=== PATIENT | female | born 1980 | race Caucasian/White ===

== ENCOUNTER 2017-10-09 17:55 | Emergency (ER) | payer OTHER ==
[2017-10-09] MEDS ORDERED: SODIUM CHLORIDE 0.9% 1,000 ML IV ONE (18:13)
[2017-10-09] MEDS ORDERED: ONDANSETRON 4 MG/2 ML VIAL IVP STA (18:13)
--- NOTE | 2017-10-09 18:15 | ED Physician Documentation ---
PD HPI NVD - Stated complaint Stated Complaint: VOMITING - Chief complaint Chief Complaint: Abd Pain - History obtained from History obtained from: Patient, Family () - History of Present Illness Timing - onset: Other (36-year-old woman has been sick with fatigue and URI for the last couple of weeks, saw her physician on Tuesday and was prescribed Augmentin, codeine for presumed sinus infection with cough. She took the codeine and that night felt [place] and nauseous, although her actually says she vomited that night she says she did not vomit until yesterday. She has had vomiting and stomach cramping without diarrhea. She doubts the possibility of , she just started her menses and her has had a vasectomy.) Review of Systems Constitutional: reports: Chills, Fatigue. denies: Fever Nose: reports: Rhinorrhea / runny nose, Congestion, Sinus pressure / pain Throat: denies: Sore throat Respiratory: reports: Cough. denies: Dyspnea GI: reports: Abdominal Pain, Nausea, Vomiting. 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 - Present Medications Home Medications: Ambulatory Orders Medication Instructions Recorded Confirmed Amoxicillin/Potassium Clav [Amox 1 each PO BID 10/09/17 10/09/17 Tr-K Clv 875-125 mg Tab] Benzonatate 100 mg PO TID PRN 10/09/17 10/09/17 Ondansetron HCl [Zofran] 4 mg PO Q6H PRN #10 tablet 10/09/17 guaiFENesin/CODEINE [Robitussin AC] 5 ml PO Q6H PRN 10/09/17 10/09/17 - Allergies Allergies/Adverse Reactions: Allergies Allergy/AdvReac Type Severity Reaction Status Date / Time Sulfa (Sulfonamide Allergy Mild Rash Verified 10/09/17 18:03 Antibiotics) - Social History Does the pt smoke?: No Smoking Status: Never smoker Does the pt drink ETOH?: Yes Does the pt have substance abuse?: No - Immunizations Immunizations are current?: Yes PD ED PE NORMAL - Vitals Vital signs reviewed: Yes - General General: Alert and oriented X 3, No acute distress - HEENT HEENT: PERRL, EOMI, Pharynx benign - Neck Neck: Supple, no meningeal sign, No bony TTP - Cardiac Cardiac: RRR, No murmur - Respiratory Respiratory: No respiratory distress, Clear bilaterally - Abdomen Abdomen: Other (Soft with normal bowel tones, mild lower abdominal tenderness without surgical signs.) - Back Back: No CVA TTP, No spinal TTP - Derm Derm: Normal color, Warm and dry - Extremities Extremities: No edema, No calf tenderness / cord - Neuro Neuro: Alert and oriented X 3, Normal speech Results - Vitals Vitals: Vital Signs - 24 hr 10/09/17 10/09/17 18:00 19:00 Temperature 36.8 C 36.8 C Heart Rate 76 71 Respiratory 16 16 Rate Blood Pressure 132/70 H 118/73 O2 Saturation 100 96 Oxygen O2 Source Room air - Labs Labs: Laboratory Tests 10/09/17 10/09/17 18:20 18:20 WBC 6.4 RBC 4.91 Hgb 14.1 Hct 42.0 MCV 85.6 MCH 28.8 MCHC 33.7 RDW 13.6 Plt Count 291 MPV 8.4 Neut # 3.9 Lymph # 2.0 [place] # 0.5 Eos # 0.0 Baso # 0.0 Absolute Nucleated RBC 0.01 Nucleated RBC % 0.1 Sodium 136 Potassium 3.7 Chloride 105 Carbon Dioxide 22 Anion Gap 9.0 BUN 9 Creatinine 0.6 Estimated GFR (MDRD) 112 Glucose 120 H Calcium 9.8 Total Bilirubin 0.5 AST 21 ALT 18 Alkaline Phosphatase 95 Total Protein 8.3 H Albumin 4.2 Globulin 4.1 Albumin/Globulin Ratio 1.0 Lipase 23 Serum HCG, Qual NEGATIVE PD MEDICAL DECISION MAKING - ED course ED course: 36-year-old woman with vomiting, potentially related to taking codeine for cough. Symptoms resolved after the administration of Zofran IV fluids and she was nontender on reevaluation. Departure - Departure Disposition: 01 Home, Self Care Clinical Impression: Vomiting Qualifiers: Vomiting type: unspecified Vomiting Intractability: non-intractable Nausea presence: with nausea Qualified Code(s): R11.2 - Nausea with vomiting, unspecified Condition: Good Record reviewed to determine appropriate education?: Yes Instructions: ED Nausea Vomiting Prescriptions: Ondansetron HCl [Zofran] 4 mg PO Q6H PRN #10 tablet PRN Reason: Nausea / Vomiting Comments: I would refrain from taking any more codeine cough syrup but she can continue the antibiotic and benzonatate for the cough. Return if worse or if not better in 12-24 hours. Return if you develop a fever. Follow-up with your doctor in 3-5 days for recheck. Your blood pressure was elevated today on check into the emergency department. This does not mean that you have hypertension, it is a common phenomenon to come to the emergency department and have elevated blood pressure. I recommend that you see your primary care physician within the week to have it rechecked when you are feeling better. Discharge Date/Time: 10/09/17 19:11
[2017-10-09 18:30] LABS: BASOPHILS % (AUTO) 0.3 %; HGB - HEMOGLOBIN 14.1 g/dL (12.0-16.0); LYMPHOCYTES % (AUTO) 30.7 %; MEAN CORPUSCULAR HEMOGLOBIN 28.8 pg (27.0-31.0); MEAN CORPUSCULAR HGB CONC 33.7 g/dL (32.0-36.0); MEAN CORPUSCULAR VOLUME 85.6 fL (81.0-99.0); MEAN PLATELET VOLUME 8.4 fL (7.9-10.8); MONOCYTES # (AUTO) 0.5 10^3/uL (0.0-1.0); MONOCYTES % (AUTO) 7.1 %; NEUTROPHILS # (AUTO) 3.9 10^3/uL (1.5-6.6); NEUTROPHILS % (AUTO) 61.9 %; NUCLEATED RED BLOOD CELLS AUTO 0.1 /100WBC; RED BLOOD COUNT 4.91 10^6/uL (4.20-5.40); RED CELL DISTRIBUTION WIDTH 13.6 % (12.0-15.0); UNCORRECTED WHITE BLOOD COUNT 6.4 x10^3/uL; WHITE BLOOD COUNT 6.4 x10^3/uL (4.8-10.8)
[2017-10-09 18:44] LABS: BILIRUBIN,TOTAL 0.5 mg/dL (0.2-1.0); BUN - BLOOD UREA NITROGEN 9 mg/dL (6-20); CALCIUM 9.8 mg/dL (8.5-10.3); CARBON DIOXIDE - CO2 22 mmol/L (21-32); CHLORIDE 105 mmol/L (101-111); CREATININE 0.6 mg/dL (0.4-1.0); GFR - MDRD 112 (>89); GLUCOSE 120 mg/dL (70-100); LIPASE 23 U/L (22-51); POTASSIUM 3.7 mmol/L (3.5-5.0); SODIUM 136 mmol/L (135-145); TOTAL PROTEIN 8.3 g/dL (6.7-8.2)
[2017-10-09] MEDS ORDERED: ONDANSETRON ODT 4 MG Prepack 2 TL STA (18:58)
[2017-10-09 19:01] VITALS: BP 118/73
== END 2017-10-09 19:11 | disposition home or self-care (01) ==
LOC: ED 17:55
DX: R11.2 Nausea with vomiting, unspecified (principal)
CPT/HCPCS: 36415; 80053; 83690; 84703; 85025; 96360; 96361; 99283; 99284

== ENCOUNTER 2018-03-16 21:20 | Emergency (ER) | payer OTHER ==
[2018-03-16 21:56] LABS: GLUCOSE, URINE (UA) NEGATIVE (NEGATIVE); KETONES,URINE (UA) TRACE mg/dL (NEGATIVE); LEUKOCYTE ESTERASE, URINE NEGATIVE (NEGATIVE); NITRITE,URINE NEGATIVE (NEGATIVE); OCCULT BLOOD,URINE LARGE (NEGATIVE); PH,URINE 5.5 PH (5.0-7.5); PROTEIN,URINE 100 mg/dL (NEGATIVE); UROBILINOGEN,URINE 1 (NORMAL) E.U./dL (NORMAL)
[2018-03-16 22:00] LABS: BILIRUBIN,URINE NEGATIVE (NEGATIVE); CLARITY,URINE BLOODY (CLEAR); HCG UR QUAL NEGATIVE; ICTOTEST,URINE NEGATIVE
[2018-03-16 22:01] LABS: BACTERIA,URINE Few /HPF (None Seen); MUCUS,URINE Few Strands; RBC,URINE TNTC /HPF (0-5); SQUAMOUS EPITHELIAL CELL,UR FEW Squamous (<= Few)
[2018-03-16 22:02] LABS: HGB - HEMOGLOBIN 13.3 g/dL (12.0-16.0); LYMPHOCYTES % (AUTO) 28.5 %; MEAN CORPUSCULAR HEMOGLOBIN 27.7 pg (27.0-31.0); MEAN CORPUSCULAR HGB CONC 33.5 g/dL (32.0-36.0); MEAN CORPUSCULAR VOLUME 82.6 fL (81.0-99.0); MEAN PLATELET VOLUME 8.9 fL (7.9-10.8); MONOCYTES # (AUTO) 0.5 10^3/uL (0.0-1.0); MONOCYTES % (AUTO) 7.8 %; NEUTROPHILS # (AUTO) 4.5 10^3/uL (1.5-6.6); NEUTROPHILS % (AUTO) 63.7 %; PLT - PLATELET COUNT 281 10^3/uL (130-450); RED BLOOD COUNT 4.79 10^6/uL (4.20-5.40); RED CELL DISTRIBUTION WIDTH 15.5 % (12.0-15.0); WHITE BLOOD COUNT 7.1 x10^3/uL (4.8-10.8)
[2018-03-16 22:09] LABS: ALBUMIN 4.1 g/dL (3.2-5.5); BILIRUBIN,TOTAL 0.5 mg/dL (0.2-1.0); CALCIUM 9.5 mg/dL (8.5-10.3); CREATININE 0.6 mg/dL (0.4-1.0); TOTAL PROTEIN 8.1 g/dL (6.7-8.2)
[2018-03-16] MEDS ORDERED: KETOROLAC 60 MG/2 ML VIAL IVP STA (22:25)
--- NOTE | 2018-03-17 00:27 | Ultrasound Preliminary Report ---
Exam: US PELVIC W/TRANSVAG+DOPPLER COMP IMPRESSION: Normal transabdominal pelvic ultrasound. [facility] SITE ID: [id number]
--- NOTE | 2018-03-17 00:35 | Ultrasound Report ---
EXAM: PELVIC ULTRASOUND EXAM DATE: 03/17/2018 12:08 AM. CLINICAL HISTORY: Left lower quad pain, history of cysts. COMPARISON: None. TECHNIQUE: Realtime transabdominal pelvic scan performed to identify the uterus and adnexa and as an overview of other pelvic structures, with static image documentation. Patient reportedly declined tr ansvaginal portion of the study. FINDINGS: Uterus: 10.6 x 3.7 x 5.0 cm, volume 101.9 cc. Anteverted position. Normal overall size and echotextur e. Masses: None. Endometrium: 2 mm. Normal. Cervix: Unremarkable. Right Ovary: 2.4 x 2.2 x 2.1 cm, volume 5.7 cc. Normal echotexture and blood flow. Left Ovary: 2.8 x 2.4 x 2.7 cm, volume 9.5 cc. Normal echotexture and blood flow. Free Fluid: None. Other: None. IMPRESSION: Normal transabdominal pelvic ultrasound. [facility] Referring Provider Line: [phone] SITE ID: [id number]
--- NOTE | 2018-03-17 00:52 | ED Physician Documentation ---
PD HPI ABD PAIN - Stated complaint Stated Complaint: ABD PX - Chief complaint Chief Complaint: Abd Pain - History obtained from History obtained from: Patient, Family - History of Present Illness Timing - onset: Today Timing - details: Abrupt onset, Now resolved Quality: Cramping, Aching, Sharp Location: LLQ Associated symptoms: Nausea. No: Fever, Vomiting Similar symptoms before: Work up / diagnostics, Treatment Recently seen: Not recently seen - Additional information Additional information: Patient is a 37 year old female with a history of fibromyalgia, recurrent pain and ovarian cysts who is presenting to the emergency department for left lower quadrant pain. Patient states that the symptoms started this evening and had her doubled over in pain. patient states that she thinks it might be her ovary. patient is currently on her menstrual cycle. Review of Systems Constitutional: denies: Fever, Chills GI: reports: Abdominal Pain, Nausea. denies: Vomiting, Constipation, Diarrhea, Hematemesis, Bloody / black stool : reports: Vaginal bleeding. 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 - Allergies Allergies/Adverse Reactions: Allergies Allergy/AdvReac Type Severity Reaction Status Date / Time Sulfa (Sulfonamide Allergy Mild Rash Verified 03/16/18 21:27 Antibiotics) codeine Allergy Emesis Verified 03/16/18 21:27 - Social History Does the pt smoke?: No Smoking Status: Never smoker Does the pt drink ETOH?: Yes Does the pt have substance abuse?: No Substance Use and Type: Marijuana - Immunizations Immunizations are current?: Yes PD ED PE NORMAL - Vitals Vital signs reviewed: Yes - General General: Alert and oriented X 3, No acute distress - HEENT HEENT: Atraumatic - Neck Neck: Supple, no meningeal sign - Cardiac Cardiac: RRR - Respiratory Respiratory: No respiratory distress - Derm Derm: Normal color, No rash - Extremities Extremities: No deformity - Neuro Neuro: Alert and oriented X 3, No motor deficit Eye Opening: Spontaneous Motor: Obeys Commands Verbal: Oriented GCS Score: 15 PD ED PE EXPANDED - Abdomen Abdomen: Tender to palpation, LLQ. No: Rebound, Guarding Results - Vitals Vitals: Vital Signs - 24 hr 03/16/18 03/17/18 21:22 00:59 Temperature 36.3 C L Heart Rate 85 50 L Respiratory 18 17 Rate Blood Pressure 97/74 126/67 O2 Saturation 99 100 Oxygen O2 Source Room air - Labs Labs: Laboratory Tests 03/16/18 03/16/18 03/16/18 21:35 21:35 21:45 WBC 7.1 RBC 4.79 Hgb 13.3 Hct 39.6 MCV 82.6 MCH 27.7 MCHC 33.5 RDW 15.5 H Plt Count 281 MPV 8.9 Neut # 4.5 Lymph # 2.0 [place] # 0.5 Eos # 0.0 Baso # 0.0 Absolute Nucleated RBC 0.00 Nucleated RBC % 0.1 Sodium 136 Potassium 3.3 L Chloride 104 Carbon Dioxide 24 Anion Gap 8.0 BUN 15 Creatinine 0.6 Estimated GFR (MDRD) 112 Glucose 85 Calcium 9.5 Total Bilirubin 0.5 AST 19 ALT 14 Alkaline Phosphatase 99 Total Protein 8.1 Albumin 4.1 Globulin 4.0 Albumin/Globulin Ratio 1.0 Lipase 32 Urine Color RED/BLOODY Urine Clarity BLOODY Urine pH 5.5 Ur Specific [place] 1.025 Urine Protein 100 H Urine Glucose (UA) NEGATIVE Urine Ketones TRACE Urine Occult Blood LARGE H Urine Nitrite NEGATIVE Urine Bilirubin NEGATIVE Urine Urobilinogen 1 (NORMAL) Ur Leukocyte Esterase NEGATIVE Urine RBC TNTC H Urine WBC 0-3 Ur Squamous Epith Cells FEW Squamous Urine Bacteria Few Urine Mucus Few Strands Ur Microscopic Review INDICATED Urine Culture Comments NOT INDICATED Urine HCG, Qual NEGATIVE - Rads (name of study) pelvic ultrasound Radiology: Final report received (normal) PD MEDICAL DECISION MAKING - ED course Complexity details: reviewed old records, reviewed results, re-evaluated patient , considered differential, d/w patient, d/w family ED course: Patient was seen and examined at bedside. patient was well appearing and in no distress. IV access was gained, labs were drawn and urine was collected. Patient was treated with toradol for pain and imaging was ordered. When patient returned from imaging the results were reviewed. there was no sign of ovarian torsion or other major abnormality. patient was well appearing and in no distress. patient required no further work up and was stable for discharge with outpatient follow up. Departure - Departure Disposition: 01 Home, Self Care Clinical Impression: Abdominal pain Condition: Good Instructions: ED Abdominal Pain Unkn Cause Follow-Up: Deandra Lopez PA-C [Primary Care Provider] - Tomorrow Comments: Your diagnostics today were within normal limits. there were no major abnormalities on your ultrasound, blood work or urine accept that you are having your menstrual cycle. it is difficult to say it this is being caused by your fibromyalgia, mentstrual cycle or other GI cause. It is unlikely to be life threatening in nature. You can take your home pain medications as needed and follow up with your doctor for further evaluation and care. Discharge Date/Time: 03/17/18 01:02
[2018-03-17 01:00] VITALS: BP 126/67
== END 2018-03-17 01:02 | disposition home or self-care (01) ==
LOC: ED 21:20
DX: R10.32 Left lower quadrant pain (principal)
CPT/HCPCS: 36415; 76830; 76856; 80053; 81001; 81003; 81025; 83690; 85025; 87086; 93975; 96374; 99283

== ENCOUNTER 2019-07-19 15:07 | Outpatient (CLI) | payer OTHER ==
--- NOTE | 2019-07-21 08:14 | Ultrasound Report ---
Reason: ABN VAGINAL BLEEDING Procedure Date: 07/19/2019 Accession Number: [id number] / [id number] Procedure: US - Pelvic w/Transvaginal CPT Code: FULL RESULT: EXAM: PELVIC ULTRASOUND EXAM DATE: 07/19/2019 04:10 PM. CLINICAL HISTORY: Abnormal vaginal bleeding. COMPARISON: None. TECHNIQUE: Realtime transabdominal pelvic scan performed to identify the uterus and adnexa and as an overview of other pelvic structures, followed by transvaginal scan to provide greater detail of the uterus and adnexa, with static image documentation. FINDINGS: Uterus: 10.3 x 4.2 x 6.2 cm, volume 14 cc. Anteverted position. Normal overall size and echotexture. Masses: None. Endometrium: 9 mm. Normal. Cervix: No mass. Incidental nabothian cysts. Right Ovary: 2.7 x 1.9 x 2.1 cm, volume 5.6 cc. Normal echotexture and blood flow. 1.1 x 0.9 cm dominant right ovarian follicle. No wall irregularities, mural nodules or thickened septations. Left Ovary: 4.2 x 2.3 x 3.1 cm, volume 15.4 cc. Normal echotexture and blood flow. 1.7 x 1.9 x 1.8 cm anechoic left ovarian cyst. No wall irregularities, mural nodules or thickened septations. Free Fluid: None. Other: None. IMPRESSION: 1. Bilateral ovarian cysts. No adnexal mass lesion identified. 2. No uterine fibroids. 3. No endometrial mass or polyp. [facility]
== END 2019-07-19 15:08 | disposition home or self-care (01) ==
LOC: DI 15:07
PROVIDERS: ATTEND Physician Assistant Medical
DX: N83.202 Unspecified ovarian cyst, left side (principal); N83.201 Unspecified ovarian cyst, right side
CPT/HCPCS: 76830; 76856

== ENCOUNTER 2019-10-09 01:40 | Emergency (ER) | payer OTHER ==
[2019-10-09] MEDS ORDERED: SODIUM CHLORIDE 0.9% 1,000 ML IV ONE (02:53)
[2019-10-09] MEDS ORDERED: ONDANSETRON 4 MG/2 ML VIAL IVP STA (02:53)
--- NOTE | 2019-10-09 03:02 | ED Physician Documentation ---
PD HPI NVD - Stated complaint Stated Complaint: VOMITING - Chief complaint Chief Complaint: General - History obtained from History obtained from: Patient - History of Present Illness Timing - onset: How many days ago (22) Timing - duration: Days Timing - details: Gradual onset, Still present Associated symptoms: Abdominal pain, Near syncope / syncope, Loss of appetite Contributing factors: Sick contact Improved by: Vomiting Similar symptoms before: Diagnosis (reaction to codine) Recently seen: Not recently seen - Additonal information Additional information: 38-year-old female previously well developed nausea and vomiting 2 days ago she has had persistent vomiting she is not been able to hold down her regular medications. She denies any abdominal pain or fever. Review of Systems Constitutional: reports: Fatigue. denies: Fever Eyes: denies: Decreased vision Ears: denies: Ear pain Nose: denies: Rhinorrhea / runny nose, Congestion Throat: reports: Sore throat Cardiac: denies: Chest pain / pressure, Palpitations Respiratory: reports: Cough. 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 - Present Medications Home Medications: Ambulatory Orders Medication Instructions Recorded Confirmed Ondansetron Odt [Zofran] 4 mg TL Q6H PRN #10 tablet 10/09/19 - Allergies Allergies/Adverse Reactions: Allergies Allergy/AdvReac Type Severity Reaction Status Date / Time Sulfa (Sulfonamide Allergy Mild Rash Verified 03/16/18 21:27 Antibiotics) codeine Allergy Emesis Verified 03/16/18 21:27 - Social History Does the pt smoke?: No Smoking Status: Never smoker Does the pt drink ETOH?: Yes Does the pt have substance abuse?: No - Immunizations Immunizations are current?: Yes PD ED PE NORMAL - Vitals Vital signs reviewed: Yes (normal ) - General General: Alert and oriented X 3, No acute distress, Well developed/nourished - HEENT HEENT: Atraumatic, PERRL, EOMI - Neck Neck: Supple, no meningeal sign, No bony TTP - Cardiac Cardiac: RRR, No murmur - Respiratory Respiratory: No respiratory distress, Clear bilaterally - Abdomen Abdomen: Normal bowel sounds, Soft, Non tender, Non distended, No organomegaly - Back Back: No CVA TTP, No spinal TTP - Derm Derm: Normal color, Warm and dry, No rash - Extremities Extremities: No deformity, Normal ROM s pain, No edema, No calf tenderness / cord - Neuro Neuro: Alert and oriented X 3, 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, No motor deficit, No sensory deficit, Normal speech Eye Opening: Spontaneous Motor: Obeys Commands Verbal: Oriented GCS Score: 15 - Psych Psych: Normal affect, Other (mood is anxious ) Results - Vitals Vitals: Vital Signs - 24 hr 10/09/19 10/09/19 01:48 04:34 Temperature 36.6 C Heart Rate 88 76 Respiratory 16 100 H Rate Blood Pressure 124/64 118/60 O2 Saturation 100 16 L Oxygen O2 Source Room air - Labs Labs: Laboratory Tests 10/09/19 10/09/19 10/09/19 03:01 03:01 03:21 WBC 8.9 RBC 4.68 Hgb 13.3 Hct 39.8 MCV 85.0 MCH 28.4 MCHC 33.4 RDW 14.1 Plt Count 282 MPV 10.0 Neut # (Auto) 6.9 H Lymph # (Auto) 1.5 Day # (Auto) 0.5 Eos # (Auto) 0.0 Baso # (Auto) 0.0 Absolute Nucleated RBC 0.00 Nucleated RBC % 0.0 Sodium 141 Potassium 3.6 Chloride 109 Carbon Dioxide 21 Anion Gap 11.0 BUN 10 Creatinine 0.6 Estimated GFR (MDRD) 111 Glucose 107 H Calcium 9.8 Total Bilirubin 0.7 AST 17 ALT 15 Alkaline Phosphatase 95 Total Protein 7.8 Albumin 4.0 Globulin 3.8 Albumin/Globulin Ratio 1.1 Lipase 30 Urine Color YELLOW Urine Clarity CLEAR Urine pH 8.0 H Ur Specific [place] 1.010 Urine Protein NEGATIVE Urine Glucose (UA) NEGATIVE Urine Ketones >=80 H Urine Occult Blood NEGATIVE Urine Nitrite NEGATIVE Urine Bilirubin NEGATIVE Urine Urobilinogen 0.2 (NORMAL) Ur Leukocyte Esterase NEGATIVE Ur Microscopic Review NOT INDICATED Urine Culture Comments NOT INDICATED Urine HCG, Qual NEGATIVE Procedures - IVC sono (time) 0250 Bedside IVC sono: IVC measures (cm) (1.03), Dehydration (est 1-2 liter deficit) PD MEDICAL DECISION MAKING - ED course Complexity details: reviewed results, re-evaluated patient, considered differential, d/w patient ED course: 38-year-old female with 2 days of vomiting is dehydrated on interrogation the inferior vena cava and she is administered intravenous fluids and Zofran. She has marked improvement in all of her symptoms and is discharged from the ED with a prescription for some Zofran. Departure - Departure Disposition: 01 Home, Self Care Clinical Impression: Vomiting Qualifiers: Vomiting type: unspecified Vomiting Intractability: non-intractable Nausea presence: with nausea Qualified Code(s): R11.2 - Nausea with vomiting, unspecified Condition: Stable Instructions: ED Nausea Vomiting Follow-Up: Deandra Lopez PA-C [Primary Care Provider] - Prescriptions: Ondansetron Odt [Zofran] 4 mg TL Q6H PRN #10 tablet PRN Reason: Nausea / Vomiting Forms: Activity restrictions Discharge Date/Time: 10/09/19 04:34
[2019-10-09 03:06] LABS: BASOPHILS % (AUTO) 0.2 %; HGB - HEMOGLOBIN 13.3 g/dL (12.0-16.0); LYMPHOCYTES # (AUTO) 1.5 10^3/uL (1.5-3.5); LYMPHOCYTES % (AUTO) 16.4 %; MEAN CORPUSCULAR HEMOGLOBIN 28.4 pg (27.0-31.0); MEAN CORPUSCULAR HGB CONC 33.4 g/dL (32.0-36.0); MONOCYTES # (AUTO) 0.5 10^3/uL (0.0-1.0); MONOCYTES % (AUTO) 5.3 %; NEUTROPHILS # (AUTO) 6.9 10^3/uL (1.5-6.6); NEUTROPHILS % (AUTO) 77.8 %; PLT - PLATELET COUNT 282 10^3/uL (130-450); RED BLOOD COUNT 4.68 10^6/uL (4.20-5.40); RED CELL DISTRIBUTION WIDTH 14.1 % (12.0-15.0); WHITE BLOOD COUNT 8.9 x10^3/uL (4.8-10.8)
[2019-10-09 03:19] LABS: ALBUMIN/GLOBULIN RATIO 1.1 (1.0-2.2); BILIRUBIN,TOTAL 0.7 mg/dL (0.2-1.0); CALCIUM 9.8 mg/dL (8.5-10.3); CREATININE 0.6 mg/dL (0.4-1.0); TOTAL PROTEIN 7.8 g/dL (6.7-8.2)
[2019-10-09 03:23] LABS: GLUCOSE, URINE (UA) NEGATIVE (NEGATIVE); KETONES,URINE (UA) >=80 mg/dL (NEGATIVE); LEUKOCYTE ESTERASE, URINE NEGATIVE (NEGATIVE); NITRITE,URINE NEGATIVE (NEGATIVE); OCCULT BLOOD,URINE NEGATIVE (NEGATIVE); PROTEIN,URINE NEGATIVE (NEGATIVE); UROBILINOGEN,URINE 0.2 (NORMAL) E.U./dL (NORMAL)
[2019-10-09 03:24] LABS: CLARITY,URINE CLEAR (CLEAR)
[2019-10-09 03:29] LABS: BILIRUBIN,URINE NEGATIVE (NEGATIVE); HCG UR QUAL NEGATIVE; ICTOTEST,URINE NEGATIVE
[2019-10-09] MEDS ORDERED: ONDANSETRON ODT 4 MG Prepack 2 TL PRN (04:23)
[2019-10-09 04:35] VITALS: BP 118/60
== END 2019-10-09 04:34 | disposition home or self-care (01) ==
LOC: ED 01:40
DX: E86.0 Dehydration (principal); R11.2 Nausea with vomiting, unspecified
CPT/HCPCS: 36415; 80053; 81001; 81003; 81025; 83690; 85025; 87086; 96361; 96374; 99284

== ENCOUNTER 2020-05-26 19:31 | Emergency (ER) | payer OTHER ==
[2020-05-26] MEDS ORDERED: KETOROLAC 30 MG/ML VIAL IVP STA (19:48)
[2020-05-26] MEDS ORDERED: SODIUM CHLORIDE 0.9% 2,000 ML IV STA (19:48)
[2020-05-26] MEDS ORDERED: ONDANSETRON 4 MG/2 ML VIAL IVP STA (19:48)
--- NOTE | 2020-05-26 19:49 | ED Physician Documentation ---
PD HPI ABD PAIN - Stated complaint Stated Complaint: VOMITING, REFLUX - Chief complaint Chief Complaint: Abd Pain - History obtained from History obtained from: Patient - History of Present Illness Timing - onset: Yesterday (39-year-old woman with history of , fibromyalgia. She has been sick since yesterday with a couple of episodes of vomiting and very frequent bowel movements although not grossly diarrhea. She has left-sided abdominal cramping. No fevers but she has had sweats. Starting to feel dizzy.) Review of Systems Ten Systems: 10 systems reviewed and negative Constitutional: reports: Sweats. 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 - Present Medications Home Medications: Ambulatory Orders Medication Instructions Recorded Confirmed Ondansetron Odt [Zofran] 4 mg TL Q6H PRN #10 tablet 10/09/19 Loperamide [Imodium] 2 mg PO QID PRN #10 capsule 05/26/20 Ondansetron Odt [Zofran] 4 mg TL Q6H PRN #10 tablet 05/26/20 - Allergies Allergies/Adverse Reactions: Allergies Allergy/AdvReac Type Severity Reaction Status Date / Time Sulfa (Sulfonamide Allergy Mild Rash Verified 03/16/18 21:27 Antibiotics) codeine Allergy Emesis Verified 03/16/18 21:27 - Social History Does the pt smoke?: No Smoking Status: Never smoker Does the pt drink ETOH?: Yes Does the pt have substance abuse?: No - Immunizations Immunizations are current?: Yes - POLST Patient has POLST: No PD ED PE NORMAL - Vitals Vital signs reviewed: Yes - General General: Alert and oriented X 3, No acute distress - Neck Neck: Supple, no meningeal sign, No bony TTP - Cardiac Cardiac: RRR, No murmur - Respiratory Respiratory: No respiratory distress, Clear bilaterally - Abdomen Abdomen: Normal bowel sounds, Soft, Non tender - Back Back: No CVA TTP, No spinal TTP - Derm Derm: Normal color, Warm and dry - Extremities Extremities: No edema, No calf tenderness / cord - Neuro Neuro: Alert and oriented X 3, Normal speech Results - Vitals Vitals: Vital Signs - 24 hr 05/26/20 05/26/20 19:34 20:02 Temperature 36.4 C L Heart Rate 84 77 Respiratory 18 Rate Blood Pressure 128/96 H 129/85 H O2 Saturation 98 100 Oxygen O2 Source Room air - Labs Labs: Laboratory Tests 05/26/20 05/26/20 05/26/20 20:00 20:00 21:22 WBC 7.5 RBC 5.03 Hgb 14.2 Hct 42.4 MCV 84.3 MCH 28.2 MCHC 33.5 RDW 14.2 Plt Count 340 MPV 10.3 Neut # (Auto) 4.7 Lymph # (Auto) 2.2 [place] # (Auto) 0.6 Eos # (Auto) 0.0 Baso # (Auto) 0.0 Absolute Nucleated RBC 0.00 Nucleated RBC % 0.0 Sodium 137 Potassium 3.2 L Chloride 105 Carbon Dioxide 21 Anion Gap 11.0 BUN 10 Creatinine 0.6 Estimated GFR (MDRD) 111 Glucose 103 H Calcium 9.7 Total Bilirubin 1.0 AST 18 ALT 16 Alkaline Phosphatase 110 Total Protein 8.6 H Albumin 4.6 Globulin 4.0 Albumin/Globulin Ratio 1.1 Lipase 29 Urine Color YELLOW Urine Clarity CLEAR Urine pH 6.0 Ur Specific [place] 1.020 Urine Protein NEGATIVE Urine Glucose (UA) NEGATIVE Urine Ketones 40 H Urine Occult Blood NEGATIVE Urine Nitrite NEGATIVE Urine Bilirubin NEGATIVE Urine Urobilinogen 0.2 (NORMAL) Ur Leukocyte Esterase SMALL H Urine RBC 0-5 Urine WBC 4-5 Ur Squamous Epith Cells MOD Squamous H Urine Bacteria Rare Ur Microscopic Review INDICATED Urine Culture Comments NOT INDICATED Urine HCG, Qual NEGATIVE PD MEDICAL DECISION MAKING - ED course ED course: 39-year-old woman with what sounds like a viral GI illness. Feeling much better after IV fluids, Zofran, Imodium. Labs only notable for mild hypokalemia repleted orally. Departure - Departure Disposition: 01 Home, Self Care Clinical Impression: Diarrhea Qualifiers: Diarrhea type: presumed infectious Qualified Code(s): R19.7 - Diarrhea, unspecified Vomiting Qualifiers: Vomiting type: unspecified Vomiting Intractability: non-intractable Nausea presence: with nausea Qualified Code(s): R11.2 - Nausea with vomiting, unspecified Condition: Good Record reviewed to determine appropriate education?: Yes Instructions: ED Gastroenteritis Viral Prescriptions: Loperamide [Imodium] 2 mg PO QID PRN #10 capsule PRN Reason: Diarrhea Ondansetron Odt [Zofran] 4 mg TL Q6H PRN #10 tablet PRN Reason: Nausea / Vomiting Comments: Thankfully most illnesses such as you are describing are fairly short-lived, should be gone within another day, we are giving some medications for the symptoms. Return if worse or if not better in the next 24 hours or so.
[2020-05-26 20:10] LABS: BASOPHILS % (AUTO) 0.1 %; HGB - HEMOGLOBIN 14.2 g/dL (12.0-16.0); LYMPHOCYTES # (AUTO) 2.2 10^3/uL (1.5-3.5); LYMPHOCYTES % (AUTO) 29.8 %; MEAN CORPUSCULAR HEMOGLOBIN 28.2 pg (27.0-31.0); MEAN CORPUSCULAR HGB CONC 33.5 g/dL (32.0-36.0); MEAN CORPUSCULAR VOLUME 84.3 fL (81.0-99.0); MEAN PLATELET VOLUME 10.3 fL (7.9-10.8); MONOCYTES # (AUTO) 0.6 10^3/uL (0.0-1.0); MONOCYTES % (AUTO) 7.7 %; NEUTROPHILS # (AUTO) 4.7 10^3/uL (1.5-6.6); PLT - PLATELET COUNT 340 10^3/uL (130-450); RED BLOOD COUNT 5.03 10^6/uL (4.20-5.40); RED CELL DISTRIBUTION WIDTH 14.2 % (12.0-15.0); WHITE BLOOD COUNT 7.5 x10^3/uL (4.8-10.8)
[2020-05-26 20:20] LABS: ALBUMIN 4.6 g/dL (3.2-5.5); ALBUMIN/GLOBULIN RATIO 1.1 (1.0-2.2); CALCIUM 9.7 mg/dL (8.5-10.3); CREATININE 0.6 mg/dL (0.4-1.0); TOTAL PROTEIN 8.6 g/dL (6.7-8.2)
[2020-05-26 21:30] LABS: BILIRUBIN,URINE NEGATIVE (NEGATIVE); GLUCOSE, URINE (UA) NEGATIVE (NEGATIVE); KETONES,URINE (UA) 40 mg/dL (NEGATIVE); LEUKOCYTE ESTERASE, URINE SMALL (NEGATIVE); NITRITE,URINE NEGATIVE (NEGATIVE); OCCULT BLOOD,URINE NEGATIVE (NEGATIVE); PROTEIN,URINE NEGATIVE (NEGATIVE); UROBILINOGEN,URINE 0.2 (NORMAL) E.U./dL (NORMAL)
[2020-05-26] MEDS ORDERED: POTASSIUM CHLORIDE 20 MEQ TABLET PO STA (21:30)
[2020-05-26] MEDS ORDERED: LOPERAMIDE 2 MG CAPSULE PO STA (21:30)
[2020-05-26 21:40] LABS: BACTERIA,URINE Rare /HPF (None Seen); CLARITY,URINE CLEAR (CLEAR); HCG UR QUAL NEGATIVE; RBC,URINE 0-5 /HPF (0-5); SQUAMOUS EPITHELIAL CELL,UR MOD Squamous (<= Few)
[2020-05-26] MEDS ORDERED: ONDANSETRON ODT 4 MG Prepack 2 TL STA (21:49)
[2020-05-26 22:07] VITALS: BP 110/73
== END 2020-05-26 22:06 | disposition home or self-care (01) ==
LOC: ED 19:31
DX: R19.7 Diarrhea, unspecified (principal); R11.2 Nausea with vomiting, unspecified; E87.6 Hypokalemia; M79.7 Fibromyalgia
CPT/HCPCS: 36415; 80053; 81001; 81025; 83690; 85025; 96361; 96374; 99283; 99284; A9270; 81003; 87086

== ENCOUNTER 2022-03-09 17:58 | Emergency (ER) | payer OTHER ==
[2022-03-09] MEDS ORDERED: NIRMATRELVIR/RITONAVIR PREPACK PO STA (21:05)
--- NOTE | 2022-03-09 21:07 | ED Physician Documentation ---
PD HPI DYSPNEA - Stated complaint Stated Complaint: C+,SOA,DIZZY - Chief complaint Chief Complaint: Resp - History obtained from History obtained from: Patient - Additional information Additional information: 41-year-old woman with history of fibromyalgia and asthma became sick with COVID yesterday with positive home test. Major complaints include body aches, hurts to walk, cough. She is not short of breath per se. She was vaccinated for COVID. Review of Systems Constitutional: reports: Chills, Myalgias, Fatigue Nose: reports: Rhinorrhea / runny nose Throat: reports: Sore throat Respiratory: reports: Cough. 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 : None HEENT: Chronic sinusitis Psych: Anxiety, Panic attacks Musculoskeletal: Osteoarthritis, Fibromyalgia Derm: None - Past Surgical History Past Surgical History: Yes Ortho: ACL reconstruction /EDGE STAINER: section - Present Medications Home Medications: Ambulatory Orders Medication Instructions Recorded Confirmed Ondansetron Odt [Zofran] 4 mg TL Q6H PRN #10 tablet 10/09/19 Loperamide [Imodium] 2 mg PO QID PRN #10 capsule 05/26/20 Ondansetron Odt [Zofran] 4 mg TL Q6H PRN #10 tablet 05/26/20 - Allergies Allergies/Adverse Reactions: Allergies Allergy/AdvReac Type Severity Reaction Status Date / Time Sulfa (Sulfonamide Allergy Mild Rash Verified 03/09/22 18:27 Antibiotics) codeine Allergy Emesis Verified 03/09/22 18:27 - Social History Does the pt smoke?: No Smoking Status: Never smoker Does the pt drink ETOH?: Yes Does the pt have substance abuse?: No - Immunizations Immunizations are current?: Yes - POLST Patient has POLST: No PD ED PE NORMAL - Vitals Vital signs reviewed: Yes - General General: Alert and oriented X 3, No acute distress - HEENT HEENT: Ears normal - Neck Neck: Supple, no meningeal sign, No bony TTP - Cardiac Cardiac: RRR, No murmur - Respiratory Respiratory: No respiratory distress, Clear bilaterally - Abdomen Abdomen: Normal bowel sounds, Soft, Non tender - Back Back: No CVA TTP, No spinal TTP - Derm Derm: Normal color, Warm and dry - Neuro Neuro: Alert and oriented X 3, Normal speech Results - Vitals Vitals: Vital Signs - 24 hr 03/09/22 03/09/22 18:21 20:48 Temperature 36.8 C 36.7 C Heart Rate 91 66 Respiratory 17 12 Rate Blood Pressure 117/75 129/75 O2 Saturation 97 98 Oxygen O2 Source Room air PD MEDICAL DECISION MAKING - ED course ED course: 41-year-old woman with symptomatic COVID, given her underlying asthma will be a good candidate for antiviral treatment and this is provided. She is not wheezing so steroids are withheld. Departure - Departure Disposition: 01 Home, Self Care Clinical Impression: COVID-19 Condition: Good Record reviewed to determine appropriate education?: Yes Instructions: ED Viral Syndrome Comments: Return if you worsen or new symptoms develop. Forms: Activity restrictions
[2022-03-09 21:20] VITALS: BP 133/78
== END 2022-03-09 21:20 | disposition home or self-care (01) ==
LOC: ED 17:58
DX: U07.1 COVID-19 (principal)
CPT/HCPCS: 99281; 99282; J3490

== ENCOUNTER 2022-12-30 14:07 | Emergency (ER) | payer OTHER ==
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
[2022-12-30] MEDS: ACETAMINOPHEN 325 MG TABLET PO STA (15:00)
[2022-12-30] MEDS: KETOROLAC 30 MG/ML VIAL IM STA (15:00)
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
[2022-12-30] MEDS: CYCLOBENZAPRINE 10 MG TABLET PO STA (16:09)
[2022-12-30] MEDS: oxyCODONE 5 MG TABLET PO STA (16:09)
[2022-12-30 16:11] VITALS: BP 104/51
== END 2022-12-30 16:12 | disposition home or self-care (01) ==
LOC: ED 14:07
DX: S16.1XXA Strain of muscle, fascia and tendon at neck level, initial encounter (principal); S40.012A Contusion of left shoulder, initial encounter; S70.02XA Contusion of left hip, initial encounter; S70.12XA Contusion of left thigh, initial encounter; V89.2XXA Person injured in unspecified motor-vehicle accident, traffic, initial encounter; Y92.410 Unspecified street and highway as the place of occurrence of the external cause
CPT/HCPCS: 72125; 72192; 73030; 96372; 99284; A9270

== ENCOUNTER 2023-02-01 09:02 | Outpatient (CLI) | payer OTHER ==
--- NOTE | 2023-02-02 09:15 | Mammography Report ---
BILATERAL DIGITAL SCREENING MAMMOGRAM 3D/2D: 02/01/2023 CLINICAL: Baseline exam. Routine screening. No prior exams were available for comparison. There are scattered areas of fibroglandular density in both breasts (category b / 25%-50% glandular t issue). There is an oval equal density focal asymmetry in the left breast at 3 o'clock posterior depth. No other significant masses, calcifications, or other findings are seen in either breast. IMPRESSION: INCOMPLETE: NEEDS ADDITIONAL IMAGING EVALUATION The oval equal density focal asymmetry in the left breast resembles a lymph node and is indeterminate . Additional views with possible ultrasound are recommended. Based on the Tyrer Cuzick model (a risk assessment model) the patients lifetime risk is 11.4% and he r 10 year risk is 1.8%. According to the ACR, ACS, and NCCN guidelines, an annual breast MRI exam kelly ng with mammogram is recommended if the patients lifetime risk is 20% or greater. This exam was interpreted at Station ID: [id number]. NOTE: For mammograms, a report in lay terms will be sent to the patient. Approximately 15% of breast malignancies will not be visualized mammographically. In the management of a palpable breast mass, a negative mammogram must not discourage biopsy of a clinically suspicious lesion. Electronically Signed By: Trevor Ramos M.D. aty/:02/01/2023 10:00:19 ACR BI-RADS Category 0: Incomplete 3340F PARENCHYMAL PATTERN: (A) - The breast(s) demonstrate(s) scattered fibroglandular densities. BI-RADS CATEGORY: (0) - 0 Mammo and [place] [id number] Immediate follow-up LATERALITY: (L)
== END 2023-02-01 09:03 | disposition home or self-care (01) ==
LOC: DI.N 09:02
DX: Z12.31 Encounter for screening mammogram for malignant neoplasm of breast (principal); R92.8 Other abnormal and inconclusive findings on diagnostic imaging of breast

== ENCOUNTER 2023-02-23 09:33 | Outpatient (CLI) | payer OTHER ==
--- NOTE | 2023-02-24 12:26 | Ultrasound Report ---
LIMITED ULTRASOUND OF LEFT BREAST: 02/23/2023 CLINICAL: Patient returns today to evaluate a focal asymmetry in the left breast. Comparison is made to exams dated: 02/23/2023 mammogram and 02/01/2023 mammogram - [facility]. Color flow ultrasound of the left breast 4 o'clock region was performed. Tong scale images of the r eal-time examination were reviewed. There is a 1.3 cm x 0.7 cm x 0.6 cm cluster of 1 mm to 2 mm complex cysts in the left breast inferior lateral quadrant posterior depth 9 cm from the nipple. This cluster of 1 mm to 2 mm complex cysts i s hypoechoic with posterior acoustic shadowing. These correlate with mammography findings. Color fl ow imaging demonstrates that there is no vascularity present. IMPRESSION: SUSPICIOUS OF MALIGNANCY The 1.3 cm x 0.7 cm x 0.6 cm cluster of 1 mm to 2 mm complex cysts in the left breast is at a low barber picion for malignancy. An ultrasound guided biopsy is recommended. These findings and recommendation were discussed with e patient by Dr Jacques This exam was interpreted at Station ID: [id number]. Electronically Signed By: Primo Rhodes M.D. acr/:02/23/2023 12:31:45 Ultrasound BI-RADS: 4a Low suspicion for malignancy BI-RADS CATEGORY: (4a) - Low Susp Biopsy follow-up [id number] Immediate follow-up LATERALITY: (B)
--- NOTE | 2023-02-24 12:26 | Mammography Report ---
UNILATERAL LEFT DIGITAL DIAGNOSTIC MAMMOGRAM 3D/2D WITH SPOT COMPRESSION: 02/23/2023 CLINICAL: Patient returns today to evaluate a focal asymmetry in the left breast. Comparison is made to exam dated: 02/01/2023 mammogram - [facility]. There are scattered areas of fibroglandular density in the left breast (category b / 25%-50% glandula r tissue). There also is a new irregular equal density focal asymmetry in the left breast at 3 o'clock posterior depth. This is seen in additional views. No other significant masses or calcifications are seen in the breast. IMPRESSION: INCOMPLETE: NEEDS ADDITIONAL IMAGING EVALUATION The new irregular equal density focal asymmetry in the left breast at 3 o'clock posterior depth is in determinate. An ultrasound is recommended. US will be performed and dictated separately. Based on the Tyrer Cuzick model (a risk assessment model) the patients lifetime risk is 8.4% and her 10 year risk is 1.3%. According to the ACR, ACS, and NCCN guidelines, an annual breast MRI exam angel g with mammogram is recommended if the patients lifetime risk is 20% or greater. This exam was interpreted at Station ID: [id number]. NOTE: For mammograms, a report in lay terms will be sent to the patient. Approximately 15% of breast malignancies will not be visualized mammographically. In the management of a palpable breast mass, a negative mammogram must not discourage biopsy of a clinically suspicious lesion. Electronically Signed By: Primo Rhodes M.D. acr/:02/23/2023 12:27:35 ACR BI-RADS Category 0: Incomplete 3340F PARENCHYMAL PATTERN: (A) - The breast(s) demonstrate(s) scattered fibroglandular densities. BI-RADS CATEGORY: (0) - 0 RECOMMENDATION: (ADDMAM) - Recommend additional mammographic views. recall n/a LATERALITY: (B)
== END 2023-02-23 09:34 | disposition home or self-care (01) ==
LOC: DI 09:33
PROVIDERS: ATTEND Family Medicine
DX: N60.12 Diffuse cystic mastopathy of left breast (principal)

== ENCOUNTER 2023-03-15 09:39 | Outpatient (CLI) | payer OTHER ==
[2023-03-15] MEDS ORDERED: LIDOCAINE-MPF 1% 5 ML VIAL ONE (09:52)
[2023-03-15] MEDS ORDERED: LIDOCAINE 1%-EPI 1:100000 20 ML MDV ONE (09:53)
[2023-03-15] MEDS ORDERED: LIDOCAINE 1%-EPI 1:100000 20 ML MDV SUBQ ONE (11:31)
[2023-03-15] MEDS ORDERED: LIDOCAINE-MPF 1% 5 ML VIAL TD ONE (11:40)
--- NOTE | 2023-03-16 12:03 | Mammography Report ---
UNILATERAL LEFT DIGITAL DIAGNOSTIC MAMMOGRAM POST-PROCEDURE IMAGING FOR MARKER PLACEMENT: 03/15/2023 CLINICAL: Post left breast ultrasound biopsy clip placement imaging. Comparison is made to exams dated: 02/23/2023 mammogram and 02/01/2023 mammogram - [facility]. There are scattered areas of fibroglandular density in the left breast (category b / 25%-50% glandula r tissue). There also is a marker clip in the left breast at 4 o'clock posterior depth. IMPRESSION: INCOMPLETE: NEEDS ADDITIONAL IMAGING EVALUATION There was a successful marker clip placement in the left breast at 4 o'clock posterior depth. The cl ip is about 2.5cm from the focal asymmetry identified on mammography and is seen only on MLO view due to the posterior location. The clip was well seen on US on immediate post-procedural imaging. Based on the Tyrer Cuzick model (a risk assessment model) the patients lifetime risk is 8.4% and her 10 year risk is 1.3%. According to the ACR, ACS, and NCCN guidelines, an annual breast MRI exam angel g with mammogram is recommended if the patients lifetime risk is 20% or greater. This exam was interpreted at Station ID: [id number]. NOTE: For mammograms, a report in lay terms will be sent to the patient. Approximately 15% of breast malignancies will not be visualized mammographically. In the management of a palpable breast mass, a negative mammogram must not discourage biopsy of a clinically suspicious lesion. Electronically Signed By: Martin Quintanilla M.D. lc/:03/15/2023 11:58:06 ACR BI-RADS Category 0: Incomplete 3340F PARENCHYMAL PATTERN: (A) - The breast(s) demonstrate(s) scattered fibroglandular densities. BI-RADS CATEGORY: (0) - 0 Unspecified - other recall n/a LATERALITY: (B)
--- NOTE | 2023-03-17 10:14 | Ultrasound Report ---
ULTRASOUND GUIDED BIOPSY LEFT BREAST USING VACUUM DEVICE WITH MARKING DEVICE INSERTED AND POST DIGITA L MAMMOGRAPHIC IMAGIN03/15/2023 CLINICAL: Left breast mass. PATIENT CONSENT: Risks (minor bleeding, infection, vasovagal reaction and repeat procedure), benefits and alternatives were explained to the patient and written informed consent was obtained. Correlation is made to exams dated: 03/15/2023 mammogram, 02/23/2023 ultrasound, 02/23/2023 mammogram, an d 02/01/2023 mammogram - [facility]. An ultrasound guided biopsy using real-time ultrasound was performed for the concerning 1.3 cm x 0.7 cm x 0.6 cm mass located in the left breast at 4 o'clock posterior depth 9 cm from the nipple. This was described on the previous ultrasound report. The skin was prepped in the usual manner. Local anesthetic was administered to the access site. A s kin bro was made in the breast. A 13 gauge biopsy needle was placed adjacent to the abnormality und er ultrasound guidance. Once the needle was documented to be in the correct location, four specimens were obtained using a vacuum assisted device. A clip was inserted into the biopsy cavity. Post procedure digital mammographic imaging demonstrates the location device at the targeted area. The specimens were sent to the laboratory for pathologica l analysis. IMPRESSION: ULTRASOUND GUIDED BIOPSY BENIGN Ultrasound guided biopsy of the 1.3 cm x 0.7 cm x 0.6 cm mass in the left breast at 4 o'clock posteri or depth 9 cm from the nipple was successful. Pathology indicates benign fibroadenoma (FA). Pathology results are concordant with imaging findings . A follow-up ultrasound in 6 months is recommended to demonstrate stability. This exam was interpreted at Station ID: [id number]. Martin mcdonald,slc/:03/17/2023 08:48:00 BI-RADS CATEGORY: () - Ultrasound [id number] 6 month follow-up LATERALITY: (B)
== END 2023-03-15 09:40 | disposition home or self-care (01) ==
LOC: DI 09:39
PROVIDERS: ATTEND Family Medicine
DX: D24.2 Benign neoplasm of left breast (principal)
CPT/HCPCS: 19083